=== PATIENT | male | born 1980 | race Caucasian/White ===

== ENCOUNTER 2017-06-12 07:53 | Emergency (ER) | payer OTHER ==
[~2017-06-12] VITALS: Ht 182.9 cm; Wt 83.9 kg
[2017-06-12] MEDS ORDERED: AMOXICILLIN 50500 MG PO (07:58)
[2017-06-12] MEDS ORDERED: IBUPROFEN 800800 M1 PO (07:59)
[2017-06-12] MEDS ORDERED: CLEOCIN HCL150 MG PO (09:20)
[2017-06-12 09:26] VITALS: BP 139/79
== END 2017-06-12 09:27 | disposition home or self-care (01) ==
LOC: ER 07:53
DX: L02.214 Cutaneous abscess of groin (principal); L03.314 Cellulitis of groin; F17.210 Nicotine dependence, cigarettes, uncomplicated; F10.99 Alcohol use, unspecified with unspecified alcohol-induced disorder; Z88.2 Allergy status to sulfonamides

== ENCOUNTER 2019-07-23 07:58 | Emergency (ER) | payer OTHER ==
[~2019-07-23] VITALS: Ht 182.9 cm; Wt 90.7 kg
[~2019-07-23 07:58] MED LIST: AMOXICILLIN 50500 MG PO; CLEOCIN HCL150 MG PO; IBUPROFEN 800800 M1 PO
[2019-07-23 08:00] VITALS: BP 130/78
[2019-07-23] MEDS ORDERED: NAPROSYN500 MG PO (08:52)
[2019-07-23] MEDS ORDERED: ULTRAM 50MG TAB50 MG PO (08:52)
== END 2019-07-23 09:09 | disposition home or self-care (01) ==
LOC: ER 07:58
DX: S93.601A Unspecified sprain of right foot, initial encounter (principal); F17.210 Nicotine dependence, cigarettes, uncomplicated; Z88.2 Allergy status to sulfonamides; X50.1XXA Overexertion from prolonged static or awkward postures, initial encounter; Y93.89 Activity, other specified; Y92.89 Other specified places as the place of occurrence of the external cause; Y99.8 Other external cause status